=== PATIENT | male | born 1965 | race Hispanic/Latino ===

== ENCOUNTER → 2022-07-19 | Day surgery (SDC) | payer OTHER ==
[~2022-07-19] MED LIST: FENTANYL CITRATE/PF 100MCG/2 ML INJ ONE; GLIPIZIDE5 MG PO; LISINOPRIL2.5 MG PO; LOSARTAN POTASS25 MG PO; MAGNESIUM CITR100 M1 PO; METFORMIN HCL500 MG PO; MIDAZOLAM HCL 2 MG/2 ML VIAL ONE; OR PHACO EYE KIT ONE; PLAVIX75 MG PO; POTASSIUM CHLO10 ME1 PO; PREOP PHACO EYE KIT ONE; VITAMIN D362.5 MC1 PO
[2022-07-19 13:24] VITALS: BP 142/80; PULSE 66; RESP 18; O2SAT 100
== END | disposition home or self-care (01) ==
LOC: OR 10:12
PROVIDERS: ATTEND Ophthalmology
DX: H25.11 Age-related nuclear cataract, right eye (principal); E11.9 Type 2 diabetes mellitus without complications; I10 Essential (primary) hypertension; Z86.73 Personal history of transient ischemic attack (TIA), and cerebral infarction without residual deficits; Z79.02 Long term (current) use of antithrombotics/antiplatelets; Z79.84 Long term (current) use of oral hypoglycemic drugs; Z79.899 Other long term (current) drug therapy; Z89.411 Acquired absence of right great toe
CPT/HCPCS: 36415; 82948; J2250; V2632

== ENCOUNTER → 2022-09-22 | Day surgery (SDC) | payer OTHER ==
[2022-08-16 15:52] LABS: BASOPHILS # (AUTO) 0.1 (0.0-0.1); BASOPHILS % 0.6 % (0.0-1.0); EOSINOPHILS # (AUTO) 0.1 (0.0-0.4); EOSINOPHILS % 0.9 % (0.0-6.0); HEMATOCRIT 46.3 % (38.2-49.6); HEMOGLOBIN 15.6 g/dL (14.0-18.0); LYMPHOCYTES # (AUTO) 1.7 (1.0-3.2); LYMPHOCYTES % 13.4 % (18.0-39.1); MEAN CORPUSCULAR HEMOGLOBIN 29.3 pg (28-32); MEAN CORPUSCULAR HGB CONC 33.7 g/dL (31-35); MONOCYTES # (AUTO) 0.7 (0.2-0.8); MONOCYTES % 5.2 % (4.4-11.3); NEUTROPHILS # (AUTO) 10.2 (2.1-6.9); NEUTROPHILS % 79.3 % (38.7-80.0); PLATELET COUNT 271 x10e3/uL (140-360); RED BLOOD COUNT 5.32 x10e6/uL (4.3-5.7); RED CELL DISTRIBUTION WIDTH 13.2 % (11.7-14.4)
[~2022-09-22] MED LIST changes: +LABETALOL HCL 5 MG/ML 20ML VIAL ONE; +LACTATED RINGER'S 1,000 ML ONE; +MAGNESIUM400 MG PO; +POVIDONE IODINE 0.05% 0.05 % ML PO ONE
[2022-09-22 08:14] VITALS: TEMP 97.1
[2022-09-22 08:30] VITALS: BP 148/89; PULSE 80; RESP 16; O2SAT 99
== END | disposition home or self-care (01) ==
LOC: OR 06:01
PROVIDERS: ATTEND Ophthalmology
DX: H25.12 Age-related nuclear cataract, left eye (principal); I10 Essential (primary) hypertension; E11.9 Type 2 diabetes mellitus without complications; Z01.810 Encounter for preprocedural cardiovascular examination; Z01.812 Encounter for preprocedural laboratory examination; Z79.02 Long term (current) use of antithrombotics/antiplatelets; Z79.84 Long term (current) use of oral hypoglycemic drugs; Z79.899 Other long term (current) drug therapy; Z86.73 Personal history of transient ischemic attack (TIA), and cerebral infarction without residual deficits; Z86.718 Personal history of other venous thrombosis and embolism
CPT/HCPCS: 36415 ×2; 66984; 82948; 85025; 93005; J2250; J3010; J3490; J7121; V2632

== ENCOUNTER 2024-12-29 12:34 | Emergency (ER) | payer OTHER ==
[~2024-12-29] VITALS: Ht 188 cm; Wt 82.6 kg
[~2024-12-29 12:34] MED LIST changes: -FENTANYL CITRATE/PF 100MCG/2 ML INJ ONE; -LABETALOL HCL 5 MG/ML 20ML VIAL ONE; -LACTATED RINGER'S 1,000 ML ONE; -MIDAZOLAM HCL 2 MG/2 ML VIAL ONE; -OR PHACO EYE KIT ONE; -POVIDONE IODINE 0.05% 0.05 % ML PO ONE; -PREOP PHACO EYE KIT ONE
[2024-12-29 13:23] VITALS: TEMP 98.8
[2024-12-29 14:15] LABS: BASOPHILS % 0.7 % (0.0-1.0); EOSINOPHILS % 1.5 % (0.0-6.0); LYMPHOCYTES % 16.0 % (18.0-39.1); MONOCYTES % 5.1 % (4.4-11.3); NEUTROPHILS % 76.3 % (38.7-80.0); RED CELL DISTRIBUTION WIDTH 12.7 % (11.7-14.4)
[2024-12-29 14:16] VITALS: BP 210/112
[2024-12-29] MEDS: HYDRALAZINE HCL 20 MG/ML VIAL IV STA (14:16)
[2024-12-29 14:30] VITALS: PULSE 82; RESP 17; O2SAT 100
[2024-12-29 14:44] LABS: EST GLOMERULAR FILTRATION RATE 32.0 ML/MIN (>=60)
== END 2024-12-29 14:41 | disposition home or self-care (01) ==
LOC: ER 12:40
DX: H43.392 Other vitreous opacities, left eye (principal); H33.22 Serous retinal detachment, left eye; I10 Essential (primary) hypertension; E11.65 Type 2 diabetes mellitus with hyperglycemia
CPT/HCPCS: 36415; 80053; 84484; 85025; 93005; 99284; J0360